=== PATIENT | male | born 1965 | race African-American/Black ===

== ENCOUNTER 2019-08-20 19:13 | Emergency (ER) | payer OTHER ==
[~2019-08-20] VITALS: Ht 170.2 cm; Wt 83.9 kg
[2019-08-20 19:42] LABS: PLATELET COUNT 271 K/uL (142-355)
[2019-08-20 19:56] LABS: POTASSIUM 3.6 mmol/L (3.6-5.2)
[2019-08-20 22:17] VITALS: BP 125/81; TEMP 99.2
== END 2019-08-20 22:35 | disposition home or self-care (01) ==
LOC: ED 19:13
PROVIDERS: Family Medicine
DX: U07.1 COVID-19 (principal); B34.9 Viral infection, unspecified
CPT/HCPCS: 80053; 81000; 85027; 87502; 87635; 87651; 93005; 99283; U0002